=== PATIENT | female | born 1995 | race Caucasian/White ===

== ENCOUNTER 2021-10-11 15:52 | Outpatient (CLI) | payer OTHER, SELFPAY | END 2021-10-11 15:53 | disposition home or self-care (01) | LOC: ANHLAB 16:02 | PROVIDERS: PCP Family Medicine; Visit Provider Obstetrics & Gynecology | DX: O20.0 Threatened abortion (principal); Z3A.00 Weeks of gestation of pregnancy not specified | CPT/HCPCS: 36415; 84702 ==

== ENCOUNTER 2021-10-18 11:16 | Outpatient (CLI) | payer OTHER, SELFPAY | END 2021-10-18 11:17 | disposition home or self-care (01) | LOC: ANHLAB 11:18 | PROVIDERS: PCP Family Medicine; Visit Provider Obstetrics & Gynecology | DX: Z34.80 Encounter for supervision of other normal pregnancy, unspecified trimester (principal); Z3A.00 Weeks of gestation of pregnancy not specified | CPT/HCPCS: 36415; 84702 ==